=== PATIENT | female | born 1955 | race Caucasian/White ===

== ENCOUNTER → 2018-04-11 | Outpatient (CLI) | payer OTHER ==
[~2018-04-11] MED LIST: OMNIPAQUE 350 MG/ML, 100ML BOTTLE ONE
== END | disposition home or self-care (01) ==
LOC: CFH 08:46
PROVIDERS: ATTEND Obstetrics & Gynecology
DX: N83.201 Unspecified ovarian cyst, right side (principal); I70.0 Atherosclerosis of aorta; K57.30 Diverticulosis of large intestine without perforation or abscess without bleeding
CPT/HCPCS: 74177; Q9967

== ENCOUNTER 2018-05-09 15:07 | Outpatient (CLI) | payer OTHER ==
[2018-05-09] MEDS ORDERED: LEVO100T PO (15:38)
[2018-05-09] MEDS ORDERED: BUPR100T8 PO (15:38)
[2018-05-09 16:07] LABS: BASOPHILS # (AUTO) 0.05 x10^3/uL (0-0.1); BASOPHILS % (AUTO) 1 % (0-1); EOSINOPHILS # (AUTO) 0.22 x10^3/uL (0-0.4); EOSINOPHILS % (AUTO) 2 % (1-7); LYMPHOCYTES # (AUTO) 3.32 x10^3/uL (1-3.4); LYMPHOCYTES % (AUTO) 35 % (22-44); MD NO; MEAN CORPUSCULAR HEMOGLOBIN 31.8 pg (27.0-34.8); MEAN CORPUSCULAR HGB CONC 34.2 g/dL (32.4-35.8); MEAN PLATELET VOLUME 7.5 fL (7.4-10.4); MONOCYTES # (AUTO) 0.63 x10^3/uL (0.2-0.8); MONOCYTES % (AUTO) 7 % (2-9); NEUTROPHILS # (AUTO) 5.33 x10^3/uL (1.8-6.8); NEUTROPHILS % (AUTO) 56 % (42-75); PLATELET COUNT 267 x10^3/uL (130-400); RED BLOOD COUNT 4.31 x10^6/uL (3.82-5.3); RED CELL DISTRIBUTION WIDTH 13.6 % (9.6-15.2)
[2018-05-09 16:17] LABS: ANION GAP 10 mmol/L (5-15); CALCIUM 8.9 mg/dL (8.5-10.1); CHLORIDE 104 mmol/L (98-107)
[2018-05-09 16:23] LABS: ALANINE AMINOTRANSFERASE 21 U/L (12-78); ALBUMIN 4.1 g/dL (3.4-5.0); ALKALINE PHOSPHATASE 79 U/L (45-117); BILIRUBIN,TOTAL 0.3 mg/dL (0.2-1.0); CREATININE 0.68 mg/dL (0.55-1.02); TOTAL PROTEIN 7.4 g/dL (6.4-8.2)
[2018-05-09 16:24] LABS: MICROSCOPIC NOT IND
[2018-05-09 16:35] LABS: CULTURE INDICATED? NO
== END 2018-05-09 23:59 | disposition home or self-care (01) ==
LOC: STAR 15:07
PROVIDERS: ATTEND Obstetrics & Gynecology
DX: Z01.818 Encounter for other preprocedural examination (principal); R19.09 Other intra-abdominal and pelvic swelling, mass and lump; N85.00 Endometrial hyperplasia, unspecified
CPT/HCPCS: 36415; 71046; 80053; 81003; 84702; 85025; 93005

== ENCOUNTER 2018-05-20 09:46 | Day surgery (SDC) | payer OTHER ==
[~2018-05-20] VITALS: Ht 167.6 cm; Wt 69.2 kg
[~2018-05-20 09:46] MED LIST changes: +BUPR100T8 PO; +LEVO100T PO; -OMNIPAQUE 350 MG/ML, 100ML BOTTLE ONE
[2018-05-20 10:31] VITALS: BP 155/85
[2018-05-20] MEDS ORDERED: LACTATED RINGERS 1,000 ML IV SCH (10:34)
[2018-05-20] MEDS ORDERED: LIDOCAINE-MPF 1%, 2ML INFIL ONE (11:00)
[2018-05-20] MEDS ORDERED: BUPIVACAINE/PF 0.25% ONE (12:44)
[2018-05-20] MEDS ORDERED: SILVER NITRATE STICK TP ONE (12:45)
[2018-05-20] MEDS ORDERED: EPINEPHRINE 1 MG/ML, 1ML ONE (12:45)
[2018-05-20] MEDS ORDERED: PROPOFOL 50 ML ONE (12:56)
[2018-05-20] MEDS ORDERED: MIDAZOLAM 1 MG/ML, 2ML ONE (12:56)
[2018-05-20] MEDS ORDERED: FENTANYL PF 250 MCG/5ML ONE (12:57)
[2018-05-20] MEDS ORDERED: BUPIVACAINE/PF-EPI 0.25% 1:200K INFIL ONE (14:03)
[2018-05-20] MEDS ORDERED: ROCURONIUM 10MG/ML,5ML ONE (14:15)
[2018-05-20] MEDS ORDERED: LABETALOL 20 MG/4 ML ONE (14:15)
[2018-05-20] MEDS ORDERED: SUCCINYLCHOLINE 20 MG/ML, 10ML ONE (14:15)
[2018-05-20] MEDS ORDERED: ONDANSETRON 2MG/ML, 2ML IV PRN (14:30)
[2018-05-20] MEDS ORDERED: PROMETHAZINE 12.5 MG SUPP PR PRN (14:30)
[2018-05-20] MEDS ORDERED: MORPHINE SULFATE 4 MG/ML, 1ML IVPush PRN (14:30)
[2018-05-20] MEDS ORDERED: OXYcodone 5 MG/5 ML ORAL.SOL UDC PO PRN (14:30)
[2018-05-20] MEDS ORDERED: FENTANYL PF 100 MCG/2ML IV PRN (14:30)
[2018-05-20] MEDS ORDERED: EPHEDRINE 50 MG/ML, 1ML IM PRN (14:30)
[2018-05-20] MEDS ORDERED: PROMETHAZINE 25 MG SUPP PR PRN (14:30)
[2018-05-20] MEDS ORDERED: MEPERIDINE/PF 25MG/0.5ML IVPush PRN (14:30)
[2018-05-20] MEDS ORDERED: MIDAZOLAM 1 MG/ML, 2ML IV PRN (14:30)
[2018-05-20] MEDS ORDERED: ONDANSETRON ODT 8 MG PO PRN (14:30)
[2018-05-20] MEDS ORDERED: ACETAMINOPHEN 325 MG TABLET PO PRN (14:30)
[2018-05-20] MEDS ORDERED: LABETALOL 5MG/ML, 20ML IV PRN (14:30)
[2018-05-20] MEDS ORDERED: PROMETHAZINE 25 MG/ML, 1ML IV PRN (14:30)
[2018-05-20] MEDS ORDERED: EPHEDRINE 50 MG/ML, 1ML IVPush PRN (14:30)
[2018-05-20] MEDS ORDERED: DIPHENHYDRAMINE 50 MG/ML, 1ML IVPush PRN (14:30)
[2018-05-20] MEDS ORDERED: OXYcodone 5 MG/5 ML ORAL.SOL UDC ONE (15:21)
[2018-05-20] MEDS ORDERED: ACETAMINOPHEN 650 MG/20.3 ML UDC ONE (15:21)
[2018-05-20] MEDS ORDERED: CEFAZOLIN 1,000 MG ONE (18:21)
[2018-05-20] MEDS ORDERED: KETOROLAC 30 MG/1 ML ONE (18:21)
[2018-05-20] MEDS ORDERED: ONDANSETRON 2MG/ML, 2ML ONE (18:21)
[2018-05-20] MEDS ORDERED: DEXAMETHASONE 4 MG/ML, 1ML ONE (18:21)
== END 2018-05-20 17:50 | disposition home or self-care (01) ==
LOC: OUT 09:46
PROVIDERS: ATTEND Obstetrics & Gynecology
DX: D27.0 Benign neoplasm of right ovary (principal); D28.2 Benign neoplasm of uterine tubes and ligaments; K65.9 Peritonitis, unspecified; N83.312 Acquired atrophy of left ovary; N94.89 Other specified conditions associated with female genital organs and menstrual cycle; Z98.890 Other specified postprocedural states; E03.9 Hypothyroidism, unspecified
CPT/HCPCS: 36415; 58558; 58661; 86850; 86900; 88112; 88305; J0171; J0330; J0690; J1100; J1885; J2250; J2405; J2704; J3010; J3490; J7120

== ENCOUNTER → 2019-04-15 | Outpatient (CLI) | payer OTHER | END | disposition home or self-care (01) | LOC: CFH 08:58 | PROVIDERS: ATTEND Family Medicine | DX: Z12.31 Encounter for screening mammogram for malignant neoplasm of breast (principal) | CPT/HCPCS: 77067 ==